=== PATIENT | male | born 1950 | race Caucasian/White ===

== ENCOUNTER 2016-07-02 16:41 | Inpatient (IN) | payer OTHER ==
[2016-07-02] MEDS ORDERED: Aspirin Low Dose CHEW TAB* 81 MG PO ONE (17:10)
[2016-07-02] MEDS ORDERED: NS 0.9% 1000 ML* 1,000 ML IV ONE (17:10)
--- NOTE | 2016-07-02 17:33 | RAD ---
INDICATION: Post intubation COMPARISON: Chest x-ray June 24, 2016 TECHNIQUE: An AP portable view obtained at 1710 hours is submitted. FINDINGS: Bones/Soft Tissues: There are no acute bony findings. There is an endotracheal tube approximately 2 cm above the chung. There is an external pacer projecting over the right hemithorax. Cardiomediastinal: The cardiomediastinal silhouette is normal. Lungs: There is mild airspace disease in right chest consistent infiltrate or atelectasis. The left lung is grossly clear. Pleura: Left costal phrenic angles not included in the [id number]. Other: None IMPRESSION: ENDOTRACHEAL TUBE POSITION DESCRIBED. MILD HYPOVENTILATION RIGHT CHEST. SUGGEST FOLLOW-UP INDICATED.
[2016-07-02] MEDS ORDERED: Norepinephrine 16MCG/ML IVPRE* 4,000 MCG/250 ML BAG IV ONE (17:41)
[2016-07-02 17:45] LABS: Hematocrit 40 % (42-52); Hemoglobin 12.8 g/dl (14.0-18.0); Mean Corpuscular HGB Conc 32 g/dl (31-36); Mean Corpuscular Hemoglobin 29 pg (27-31); Mean Corpuscular Volume 92 fL (80-94); Mean Platelet Volume 9 um3 (7.4-10.4); Red Blood Count 4.37 10^6/ul (4.0-5.4); Red Cell Distribution Width 14 % (10.5-15)
[2016-07-02 17:58] LABS: Albumin 2.9 g/dL (3.2-5.2); BUN/Creatinine Ratio 12.4 (8-20); Calcium 8.2 mg/dL (8.6-10.3); EGFR African American 59.2 (>60); EGFR Non-African American 46.1 (>60); Globulin 2.9 g/dL (2-4); Potassium 4.9 mmol/L (3.5-5.0); Total Bilirubin 0.3 mg/dL (0.2-1.0); Total Protein 5.8 g/dL (6.4-8.9)
[2016-07-02 18:04] LABS: Troponin I 0.04 ng/mL (<0.04)
[2016-07-02] MEDS ORDERED: DOBUTamine 2000 MCG/ML IVPREMX 500 MG/250 ML BAG IV ONE (18:33)
[2016-07-02] MEDS ORDERED: DOBUTamine 2000 MCG/ML IVPREMX 500 MG/250 ML BAG IV SCH (19:00)
--- NOTE | 2016-07-02 19:09 | ED ---
Cardiac Resuscitation - HPI Summary HPI Summary: Patient presents for evaluation after ROSC and unwitnessed cardiac arrest. Patient had unwitnessed downtime, but found by . EMS called and begun resuscitation. Failed intubation x 2 and Combitube placed with success. POCT glucose was 204. Narcotic bottle found nearby, so EMS gave 2 mg of IV narcan without relief. Asystole by ALS and had 3 epinephrine with compressions and ROSC. No RSI given due to unresponsiveness. History limited by patient condition. - History of Current Complaint Chief Complaint: EDCardiacArrest Stated Complaint: ABC Time Seen by Provider: 07/02/16 16:45 Hx Obtained From: EMS Hx From Patient Unobtainable Due To: Extremis Onset/Duration: Unknown Arrest Witnessed: No Down-time Before Basic Life Support Initiated: Unknown Down-time Before Advanced Life Support Initiated: Unknown Was Defibrillating Shock Administered: No Did Patient Have Return of Spontaneous Circulation (ROSC): Yes - Prehospital Findings Airway: Gag Reflex Absent Breathing: Apnea Circulation/Rhythm: Asystole Disability/Neurologic: Unresponsive - Prehospital Intervention Breathing: Oral Endotracheal Circulation/Rhythm: Chest Compressions, Epinephrine:, IV Catheter Placed - Prehospital Response Airway: Gag Reflex Absent Circulation/Rhythm: Asystole - Allergies/Home Medications Allergies/Adverse Reactions: Allergies Allergy/AdvReac Type Severity Reaction Status Date / Time Morphine Allergy Intermediate Hives Verified 06/13/14 08:51 - Past Medical History Past Medical History: Unobtainable Due to Extremis - Family History Family History: Unobtainable Due to Extremis - Social History Social History: Unobtainable Due to Extremis, Lives with Family - Review of Systems Review of Systems: Unobtainable Due to Extremis Physical Examination - Physical Examination Completion Of Physical Exam Limited Due To: Extremis Resuscitation: Successful - ED Findings Airway: Gag Reflex Absent Breathing: Apnea, Lungs: Crackles, Breath Sounds Equal, Bilateral Circulation/Rhythm: Sinus Tachycardia Disability/Neurological: Unresponsive, Does NOT Respond to Pain, Reflexes Not Intact, Pupils Fixed, Pupils Dilated - ED Intervention Breathing: By ED Physician, ETT Cuffed, Oral Endotracheal Circulation/Rhythm: IV Catheter Placed - ED Response Airway: Gag Reflex Absent Breathing: ETT in Airway: - 8.0, Placement Confirmed by Auscultation, Placement Confirmed by Capnometer Circulation/Rhythm: Sinus Tachycardia - Glascow Coma Score Eye Openin - None Motor: 1 - None Verbal: 1 - Intubated - Skin without lesions. Normocephalic and atraumatic head. Supple neck. Soft benign abdomen. No rigidity or clonus. Pulses equal in carotids and femorals. Coma Scale Total: 3 T Procedures - Central Line Central Line Lumen: triple Central Line Procedure: sterile drapes applied, sterile dressing applied Central Line Position: subclavian (L) Complications: none Central Line Post Position: sutured, good blood return, position confirmed w/ CXR - Intubation Intubation Method: orotracheal Tube Size (cm): 8.0 Breath Sounds after Intubation: equal Intubation Complications: no complications, apparent aspiration Post Intubation Xray: Yes Progress/Xray Impression: Good ET Tube placement. No pneumothorax. Diagnostics - Laboratory Lab Results: Lab Results 07/02/16 07/02/16 07/02/16 Range/Units 16:48 16:48 16:48 WBC 19.0 H (3.5-10.8) 10^3/ul RBC 4.37 (4.0-5.4) 10^6/ul Hgb 12.8 L (14.0-18.0) g/dl Hct 40 L (42-52) % MCV 92 (80-94) fL MCH 29 (27-31) pg MCHC 32 (31-36) g/dl RDW 14 (10.5-15) % Plt Count 281 (150-450) 10^3/ul MPV 9 (7.4-10.4) um3 Neut % (Auto) 72.1 (38-83) % Lymph % (Auto) 19.8 L (25-47) % [place] % (Auto) 6.0 (1-9) % Eos % (Auto) 1.8 (0-6) % Baso % (Auto) 0.3 (0-2) % Absolute Neuts (auto) 13.7 H (1.5-7.7) 10^3/ul Absolute Lymphs (auto) 3.8 (1.0-4.8) 10^3/ul Absolute Monos (auto) 1.1 H (0-0.8) 10^3/ul Absolute Eos (auto) 0.3 (0-0.6) 10^3/ul Absolute Basos (auto) 0.1 (0-0.2) 10^3/ul Absolute Nucleated RBC 0.01 10^3/ul Nucleated RBC % 0 INR (Anticoag Therapy) 0.94 (0.89-1.11) APTT 37.8 H (26.0-36.3) seconds Sodium 135 (133-145) mmol/L Potassium 4.9 (3.5-5.0) mmol/L Chloride 103 (101-111) mmol/L Carbon Dioxide 21 L (22-32) mmol/L Anion Gap 11 (2-11) mmol/L BUN 19 (6-24) mg/dL Creatinine 1.53 H (0.67-1.17) mg/dL Est GFR ( Amer) 59.2 (>60) Est GFR (Non-Af Amer) 46.1 (>60) BUN/Creatinine Ratio 12.4 (8-20) Glucose 298 H (70-100) mg/dL Lactic Acid (0.5-2.0) mmol/L Calcium 8.2 L (8.6-10.3) mg/dL Total Bilirubin 0.30 (0.2-1.0) mg/dL AST 169 H (13-39) U/L ALT 176 H (7-52) U/L Alkaline Phosphatase 150 H (34-104) U/L Total Creatine Kinase 328 H (10-223) U/L CK-MB (CK-2) 4.9 (0.6-6.3) ng/mL Myoglobin 479.0 H (17.4-105.7) ng/mL Troponin I 0.04 H* (<0.04) ng/mL B-Natriuretic Peptide ( - 100) pg/mL Total Protein 5.8 L (6.4-8.9) g/dL Albumin 2.9 L (3.2-5.2) g/dL Globulin 2.9 (2-4) g/dL Albumin/Globulin Ratio 1.0 (1-3) 07/02/16 07/02/16 Range/Units 16:48 16:48 WBC (3.5-10.8) 10^3/ul RBC (4.0-5.4) 10^6/ul Hgb (14.0-18.0) g/dl Hct (42-52) % MCV (80-94) fL MCH (27-31) pg MCHC (31-36) g/dl RDW (10.5-15) % Plt Count (150-450) 10^3/ul MPV (7.4-10.4) um3 Neut % (Auto) (38-83) % Lymph % (Auto) (25-47) % [place] % (Auto) (1-9) % Eos % (Auto) (0-6) % Baso % (Auto) (0-2) % Absolute Neuts (auto) (1.5-7.7) 10^3/ul Absolute Lymphs (auto) (1.0-4.8) 10^3/ul Absolute Monos (auto) (0-0.8) 10^3/ul Absolute Eos (auto) (0-0.6) 10^3/ul Absolute Basos (auto) (0-0.2) 10^3/ul Absolute Nucleated RBC 10^3/ul Nucleated RBC % INR (Anticoag Therapy) (0.89-1.11) APTT (26.0-36.3) seconds Sodium (133-145) mmol/L Potassium (3.5-5.0) mmol/L Chloride (101-111) mmol/L Carbon Dioxide (22-32) mmol/L Anion Gap (2-11) mmol/L BUN (6-24) mg/dL Creatinine (0.67-1.17) mg/dL Est GFR ( Amer) (>60) Est GFR (Non-Af Amer) (>60) BUN/Creatinine Ratio (8-20) Glucose (70-100) mg/dL Lactic Acid 7.2 H* (0.5-2.0) mmol/L Calcium (8.6-10.3) mg/dL Total Bilirubin (0.2-1.0) mg/dL AST (13-39) U/L ALT (7-52) U/L Alkaline Phosphatase (34-104) U/L Total Creatine Kinase (10-223) U/L CK-MB (CK-2) (0.6-6.3) ng/mL Myoglobin (17.4-105.7) ng/mL Troponin I (<0.04) ng/mL B-Natriuretic Peptide 20 ( - 100) pg/mL Total Protein (6.4-8.9) g/dL Albumin (3.2-5.2) g/dL Globulin (2-4) g/dL Albumin/Globulin Ratio (1-3) Result Diagrams: 07/02/16 16:48 07/02/16 16:48 Lab Statement: Any lab studies that have been ordered have been reviewed, and results considered in the medical decision making process. - EKG No standard instances Cardiac Rate: Tachycardia EKG Rhythm: Sinus Tachycardia Ectopy: None Cardiac Resus. Course/Dx - Cardiac Resuscitation Differential Dx/HPI/PQRI: Acute Myocardial Infarct, Drug Overdose, Respiratory Failure - Diagnoses Provider Diagnoses: Cardiopulmonary arrest with successful resuscitation, Aspiration pneumonia, Hypoxic encephalopathy - Provider Notifications Discussed Care Of Patient With: Case discussed with Video Tape Duplicator who will take up to the ICU and determine CT needs as well as antibiotics. - Critical Care Time Critical Care Time: 30-74 min - Limited Transthoracic Echocardiography: No pericardial effusion. Concentric motion without regional wall motion abnormality. IVC is greater than 2 cm with <50% respirophasic variation. Jimmy Feldman MD, RDMS RDCS Transthoracic Ultrasound: No pneumothorax or significant pleural effusion. Jimmy Feldman MD, RDMS RDCS Discharge - Discharge Plan Condition: Critical Disposition: ADMITTED TO [facility]
--- NOTE | 2016-07-02 22:05 | HP ---
ADMISSION HISTORY AND PHYSICAL: DATE OF ADMISSION: 07/02/16 REASON FOR ADMISSION: Cardiac arrest. HISTORY OF PRESENT ILLNESS: This patient is a 65-year-old white male with a history of depression who suffered a cardiac arrest while at home earlier today without any prodromal symptoms. EMS arrived at the scene approximately 10 minutes after the arrest and the initial rhythm was asystole. CPR in the field continued for approximately 2 hours (with end-tidal PCO2s ranging from 10 to 30 mm Hg) with eventual ROSC, but patient remained comatose and was admitted to the ICU for targeted temperature management. There is no prior history of cardiovascular disease, and the patient did not complain of chest pain, headache , nausea, or vomiting prior to the event. On arrival to the ICU, blood pressure was 100/70 (mean BP = 75) and arterial O2 sat was 85% on an FIO2 of 100% (and mechanical ventilation). Over the course of the first 2 hours in the intensive care unit, the blood pressure steadily decreased, requiring levophed for BP support. Arterial O2 sat also progressively declined to 70% despite and FIO2 of 100%. Chest x-ray showed patchy infiltrates in the right lung. OUTPATIENT MEDICATIONS: 1. Roxicodone. 2. Lyrica. 3. Omeprazole. 4. Nortriptyline. 5. Cymbalta. 6. Lipitor. ALLERGIES: MORPHINE, which produces urticaria. SOCIAL HISTORY: The patient is and lives with his . 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 There is no history of drug or alcohol abuse. PHYSICAL EXAMINATION GENERAL: The patient is unresponsive to verbal commands and deep pain. VITAL SIGNS: As mentioned. HEENT: Pupils dilated and fixed. Corneals absent. NECK: Without masses or jugular venous distention. LUNGS: Scattered rhonchi. No crackles. CARDIAC: S1 and S2 faint. No murmurs, rubs, or gallops appreciated. ABDOMEN: Not distended. EXTREMITIES: Cool, but not cyanotic or mottled. There is no edema. ADMISSION LABORATORY DATA: White count 19, hemoglobin 12.8, platelets 281. Serum bicarb was 21 with an anion gap of 11 and a lactic acid of 7.2. Creatinine was 1.53. Glucose of 298, myoglobin 479, troponin 0.04. CPK was 328 , alk phos 150, ALT 176, AST 169. Albumin 2.9. BNP 20. Chest x-ray as described and 12-lead EKG pending. IMPRESSION: Cardiac arrest with prolonged resuscitation effort and failure to awaken post-arrest. The prognosis seems very poor considering the loss of pupillary reflexes and the steady decline in blood pressure and arterial O2 saturation. . MANAGEMENT PLAN: General supportive care, including vasopressors and mechanical ventilation. Patient's was present at the bedside, and is aware of the poor prognosis. She has requested a DNR order for the patient, which was enacted. CRITICAL CARE TIME: 60 minutes. [id number]/[facility] #: [id number] VELIA
[2016-07-03 02:27] LABS: FIO2 100; Resp Rate 16; Ventilator Volume 500
[2016-07-03 02:28] LABS: PCO2 Arterial 65 mmHg (35-45)
[2016-07-03 03:22] LABS: Urine Bacteria Absent (Absent); Urine Bilirubin Negative (Negative); Urine Glucose 1+(50 mg/dL) (Negative); Urine Nitrite Negative (Negative); Urine Sperm Present (Absent)
[2016-07-03 03:30] LABS: Add Diff/Slide Review? Slide Review Added; Comments Flag Yes; Hematocrit 47 % (42-52); Hemoglobin 15.1 g/dl (14.0-18.0); Mean Corpuscular HGB Conc 32 g/dl (31-36); Mean Corpuscular Hemoglobin 29 pg (27-31); Mean Corpuscular Volume 89 fL (80-94); Mean Platelet Volume 9 um3 (7.4-10.4); Red Blood Count 5.27 10^6/ul (4.0-5.4); Red Cell Distribution Width 14 % (10.5-15); White Blood Count 19.1 10^3/ul (3.5-10.8)
[2016-07-03 03:36] LABS: Albumin 3.2 g/dL (3.2-5.2); BUN/Creatinine Ratio 13.6 (8-20); Calcium 7.9 mg/dL (8.6-10.3); Direct Bilirubin 0.1 mg/dL (0.03-0.18); EGFR African American 40.2 (>60); EGFR Non-African American 31.3 (>60); Globulin 3.3 g/dL (2-4); Indirect Bilirubin 0.2 mg/dL (0.3-1.0); Total Bilirubin 0.3 mg/dL (0.2-1.0); Total Protein 6.5 g/dL (6.4-8.9)
[2016-07-03 03:42] LABS: Potassium 6.3 mmol/L (3.5-5.0); Troponin I 7.84 ng/mL (<0.04)
[2016-07-03 03:51] LABS: Immature Granulocytes 20 % (0-9); Neutrophil % 66 % (38-83); RBC Morphology Normal (Normal); Reactive Lymph % 5 % (0-6)
[2016-07-03 06:46] LABS: Comments Flag Yes; Hematocrit 44 % (42-52); Hemoglobin 14.7 g/dl (14.0-18.0); Mean Corpuscular HGB Conc 33 g/dl (31-36); Mean Corpuscular Hemoglobin 29 pg (27-31); Mean Corpuscular Volume 89 fL (80-94); Mean Platelet Volume 8 um3 (7.4-10.4); Red Blood Count 5.01 10^6/ul (4.0-5.4); Red Cell Distribution Width 14 % (10.5-15); White Blood Count 17.6 10^3/ul (3.5-10.8)
[2016-07-03 07:07] LABS: BUN/Creatinine Ratio 14.7 (8-20); Calcium 7.9 mg/dL (8.6-10.3); EGFR African American 40.9 (>60); EGFR Non-African American 31.8 (>60); Globulin 3.2 g/dL (2-4); Potassium 5.8 mmol/L (3.5-5.0); Total Bilirubin 0.3 mg/dL (0.2-1.0); Total Protein 6.2 g/dL (6.4-8.9)
--- NOTE | 2016-07-03 08:08 | RAD ---
INDICATION: Cardiac arrest COMPARISON: None. TECHNIQUE: Single AP portable view of the chest was obtained. FINDINGS: Image quality is compromised due to the relative inferiority of a portable chest x-ray. Lines and tubes including the endotracheal tube and a left subclavian vein central line are in appropriate position and unchanged from the previous chest x-ray. There is increasing opacification overlying the right lung. There is density at the left lung base and blunting of the left costophrenic angle. IMPRESSION: Worsening aeration of the left lung could be due to layering pleural effusion or worsening pulmonary edema in the setting of cardiac arrest.
[2016-07-03 08:38] LABS: Troponin I 10.61 ng/mL (<0.04)
[2016-07-03] MEDS ORDERED: Norepinephrine 16MCG/ML IVPRE* 0 MCG/0 ML BAG IV ONE (13:09)
--- NOTE | 2016-07-03 17:49 | PN ---
Critical Care Services: Clinical consition has stabilized, but patient still has not awakened. TTM to 36 degrees continues. Vital Signs: Temp Pulse Resp BP SpO2 FiO2 96.3 F 56 21 122/54 93 90 NOTE: No spontaneous ventilatory efforts. Physical Exam: Gen:Unresponsive HEENT:Pupils midposition and unresponsive. Corneal reflexes absent. Lungs:Scattered rhonchi Extremities:Warm. No cyanosis or edema. Fluid Balance (Past 24 Hours): 07/03/16 06:59 Intake Total 2089 Output Total 550 Balance +1539 Weight 267 lb Intake: IV Fluids 1806 LR 1806 Medicated IV 283 CC - Norepinephrine/ 283 Levophed Output: Colvin 550 Labs: 07/03/16 07/03/16 06:30 06:30 WBC 17.6 H RBC 5.01 Hgb 14.7 Hct 44 Plt Count 267 Sodium 138 Potassium 5.8 Chloride 105 Carbon Dioxide 29 Anion Gap 4 BUN 31 H Creatinine 2.11 Est GFR ( Amer) 40.9 Est GFR (Non-Af Amer) 31.8 BUN/Creatinine Ratio 14.7 Glucose 144 Lactic Acid 1.7 Calcium 7.9 L Total Bilirubin 0.30 Indirect Bilirubin AST 201 ALT 185 Alkaline Phosphatase 158 Total Creatine Kinase CK-MB (CK-2) Troponin I 10.61 Total Protein 6.2 L Albumin 3.0 Globulin 3.2 Studies: CXR: Progressive infiltrate right lung Nutrition: None Impression: Patient currently has no evidence of brainstem activity. However, I cannot do a brain evaluation while the patient is being cooled. The absence of pupillary reflexes is a poor prognostic sign for awakening. Plan: Brain evaluation in AM tomorrow (after the period of induced cooling has terminated). Patient's was at the bedside today, and is aware of the current situation and the poor prognosis.
[2016-07-03] MEDS ORDERED: Piperac/Tazob 3.375 gm in NS* 3.375 GM/100 ML BAG IVPB ONE (19:30)
[2016-07-03] MEDS: Norepinephrine 16MCG/ML IVPRE* 4,000 MCG/250 ML BAG IV SCH (21:38)
[2016-07-03] MEDS: Heparin VIAL(*) 5000 UNITS/ML VIAL (FIVE THOUSAND) SUBCUT SCH (21:38)
[2016-07-03 21:49] LABS: Benzodiazepine Urine Screen None Detected (None Detect)
[2016-07-03] MEDS: Piperac/Tazob 3.375 gm in NS* 3.375 GM/100 ML BAG IVPB SCH (23:50)
[2016-07-04 03:32] LABS: FIO2 100; Resp Rate 20; Ventilator Volume 500
[2016-07-04 03:59] LABS: FIO2 100; Resp Rate 20; Ventilator Volume 500
[2016-07-04 04:00] LABS: Patient Temp ABG 98.6
[2016-07-04 04:09] LABS: PCO2 Arterial 125 mmHg (35-45)
--- NOTE | 2016-07-04 04:31 | PN ---
Progress Note - Progress Note Note: Patient severely acidotic. Appears to mixed picture but more respiratory acidosis. Would not ordinarily give bicarb but we have exhausted our possibilities with vent management and only hope to improve acidodis is with bicarb. Will start bicarb drip and recheck ABGs. To be clear, the chances of this helping are remote,
[2016-07-04] MEDS: Sodium Bicarbonate 8.4% IV* 50 MEQ in D5W 1000 ML BAG* 1,000 ML IVPB SCH ×2 (04:53→10:18)
[2016-07-04] MEDS ORDERED: Sodium Bicarbonate 8.4% IV* 50 MEQ in D5W 1000 ML BAG* 1,000 ML IVPB SCH (05:00)
[2016-07-04 05:34] LABS: Hematocrit 42 % (42-52); Hemoglobin 13.7 g/dl (14.0-18.0); Mean Corpuscular HGB Conc 32 g/dl (31-36); Mean Corpuscular Hemoglobin 29 pg (27-31); Mean Corpuscular Volume 91 fL (80-94); Mean Platelet Volume 9 um3 (7.4-10.4); Red Blood Count 4.68 10^6/ul (4.0-5.4); Red Cell Distribution Width 14 % (10.5-15); White Blood Count 15.3 10^3/ul (3.5-10.8)
[2016-07-04 05:37] LABS: Comments Flag Yes
[2016-07-04 05:46] LABS: Albumin 2.9 g/dL (3.2-5.2); BUN/Creatinine Ratio 16.3 (8-20); Calcium 7.7 mg/dL (8.6-10.3); EGFR African American 29.1 (>60); EGFR Non-African American 22.6 (>60); Globulin 3.1 g/dL (2-4); Total Bilirubin 0.3 mg/dL (0.2-1.0)
[2016-07-04 05:57] LABS: Potassium 6.4 mmol/L (3.5-5.0); Troponin I 6.98 ng/mL (<0.04)
[2016-07-04] MEDS: Heparin VIAL(*) 5000 UNITS/ML VIAL (FIVE THOUSAND) SUBCUT SCH (06:00)
[2016-07-04 06:19] LABS: FIO2 100; Resp Rate 20; Ventilator Volume 500
[2016-07-04 06:28] LABS: PCO2 Arterial 95 mmHg (35-45)
[2016-07-04] MEDS: Piperac/Tazob 3.375 gm in NS* 3.375 GM/100 ML BAG IVPB SCH (07:08)
[2016-07-04] MEDS: Norepinephrine 16MCG/ML IVPRE* 4,000 MCG/250 ML BAG IV SCH (07:30)
[2016-07-04] MEDS ORDERED: Lidocain 1% EPI 1:100,000 * 30 ML MDV ONE (08:13)
--- NOTE | 2016-07-04 08:15 | RAD ---
HISTORY: Pneumonia COMPARISONS: July 03, 2016 at 6:20 AM VIEWS:1: Single frontal portable view of the chest at 6:40 AM FINDINGS: LINES AND TUBES: An endotracheal tube is noted with the tip overlying the trachea between the clavicles and the chung. A gastric tube is noted with the tip below the [id number] the current examination, but below the diaphragm. A left-sided PICC line is noted with tip overlying the confluence of the brachiocephalic vein on the left in the superior vena cava. CARDIOMEDIASTINAL SILHOUETTE: The cardiomediastinal silhouette is normal for portable technique. PLEURA: There has been interval development of a large right-sided pneumothorax LUNG PARENCHYMA: There is complete atelectasis of the right lung ABDOMEN: The upper abdomen is clear. There is no subphrenic gas. BONES AND SOFT TISSUES: No bone or soft tissue abnormalities are noted. IMPRESSION: 1. THERE HAS BEEN INTERVAL DEVELOPMENT OF A LARGE RIGHT PNEUMOTHORAX WITH COMPLETE ATELECTASIS OF THE RIGHT LUNG. THE ICU TEAM CARING FOR THE PATIENT WAS AWARE OF THIS FINDING AT THE TIME OF DICTATION. 2. LINES AND TUBES ABOVE
[2016-07-04] MEDS ORDERED: Famotidine IV * 20 MG in NS 0.9% 100 ML* 100 ML IVPB SCH (09:00)
--- NOTE | 2016-07-04 09:28 | RAD ---
HISTORY: Chest tube placement COMPARISONS: July 04, 2016 at 6:33 AM VIEWS:1: Single frontal portable view of the chest at 8:44 AM FINDINGS: LINES AND TUBES: An endotracheal tube is noted with the tip overlying the trachea between the clavicles and the chung. A gastric tube is noted with the tip in the left upper quadrant in a prepyloric position. A left-sided central venous catheter is noted with the tip overlying the confluence of the left brachiocephalic vein and the superior vena cava. There has been interval placement of a right-sided chest tube. CARDIOMEDIASTINAL SILHOUETTE: The cardiomediastinal silhouette is stable. PLEURA: There is been interval resolution of the right-sided pneumothorax, without appreciable residual. There is blunting of left costophrenic angle LUNG PARENCHYMA: There is confluent alveolar opacification of the right lower lung and to lesser extent of the left lung base ABDOMEN: The upper abdomen is clear. There is no subphrenic gas. BONES AND SOFT TISSUES: No bone or soft tissue abnormalities are noted. IMPRESSION: 1. LINES AND TUBES ABOVE. 2. INTERVAL RESOLUTION OF THE RIGHT-SIDED PNEUMOTHORAX. 3. PATCHY BIBASILAR ATELECTASIS VERSUS CONSOLIDATION, GREATER ON THE LEFT. 4. SMALL LEFT PLEURAL EFFUSION
--- NOTE | 2016-07-04 09:52 | PN ---
Progress Note - Progress Note Note: During the evening, patient developed respiratory acidosis and a progressive increase in vasopressor requirements (to levophed at 20 mcg/min) - chest x-ray at 6 AM showed a right-sided tension pneumothorax - a chest tube was placed in the right anterior 5th ICS emergently (by Dr. Su), with re-expansion of the lung on post-insertion chest film. Levophed requirement dropped from 20 to 5 mcg/min after re-expansion of the lung. Repeats ABGs pending.
[2016-07-04] MEDS ORDERED: Famotidine IV* 10 MG/ML 2 ML (20 mg) ONE (10:18)
[2016-07-04 10:35] LABS: FIO2 100; Resp Rate 14; Ventilator Volume 350
[2016-07-04 10:40] LABS: FIO2 15
[2016-07-04 10:56] LABS: PCO2 Arterial > 124 mmHg (35-45)
[2016-07-04 10:57] LABS: PCO2 Arterial 125 mmHg (35-45)
--- NOTE | 2016-07-04 13:00 | PN ---
Progress Note - Progress Note Note: BRAIN DETERMINATION An evaluation for brain was performed in the AM of 07/04/2016, while the patient was normothermic, and the results were as follows: 1. Patient was comatose, and unresponsive to noxious stimuli 2. Corneal, gag and cough reflexes were absent. 3. Pupillary light reflex was absent. 4. Oculovestibular and oculocephalic responses were absent. 5. Patient removed from ventilator for 5 minutes (with high-flow O2 insufflation ) and showed no evidence of breathing efforts. PaCO2 increased from 125 to 134 mm Hg during the apnea test. These observations satisfy the criteria for the diagnosis of brain , which was made on 10:28 AM. Patient's was notified of the brain diagnosis.
[2016-07-04 13:11] VITALS: BP 166/83
--- NOTE | 2016-07-04 23:29 | OP ---
CC: [facility]; Dr. Sara Leal. OPERATIVE REPORT: DATE OF OPERATION: 07/04/16 DATE OF : 52 SURGEON: Celio Su MD ANESTHESIA: Existing intravenous sedation as well as 1% lidocaine with epinephrine. PRE-OP DIAGNOSIS: Large right pneumothorax. POST-OP DIAGNOSIS: Large right pneumothorax. OPERATIVE PROCEDURE: Insertion of #32-Khmer right thoracostomy tube under sterile conditions. ESTIMATED BLOOD LOSS: Minimal. WOUND CLASSIFICATION: I. COMPLICATIONS: None. DRAINS: #32-Khmer chest tube into the right pleural space. BRIEF HISTORY: Mr. Navi Aguiar is a 65-year-old gentleman who unfortunately presented to the emergency room in sudden cardiac arrest requiring aggressive cardiac resuscitation, intubation, and admission to the intensive care unit. He has been on the ventilator and sedated and on this morning, chest x-ray noted to have almost a complete collapse of the right lung. In addition, he had apparently had some relative hypotension and hypoxemia over the last several hours. I was called emergently by Dr. Sunil Lea for insertion of a right-sided chest tube for decompression of the right pleural space. Due to the emergent nature of the clinical scenario, Dr. Lea had talked with the patient's and obtained informed phone consent. I did not talk with the patient's , as we felt that it was after Dr. Lea had conversed with her the procedure needed to be done emergently. DESCRIPTION OF PROCEDURE: Informed consent had been obtained. The patient was in the supine position in the intensive care unit in his bed on the ventilator and sedated and the right anterolateral chest was prepped and draped in the usual sterile fashion. The right side was marked with indelible ink. The chest x-ray was reviewed once again to assure ourselves the correct side. Time-out verification was completed. Lidocaine 1% with epinephrine was infiltrated in the anterolateral chest just below the pectoralis muscle and the nipple and an oblique incision was made over what was felt to be the 5th to 6th intercostal space. Using sharp and blunt dissection, carried down to the anterior rib surface and using a blunt Sabina, the pleura was entered over the superior surface of the rib. There was a small juárez of air and some serous fluid, which drained. A #32-Khmer chest tube was placed about 16 cm without difficulty. The catheter was secured to the skin with several 2-0 Prolene sutures. Vaseline gauze and 4x4 gauze were then placed for an occlusive dressing. The catheter was secured to the Pleur-evac and placed on suction. Postprocedural chest x-ray showed the catheter to be in good position with expansion of the lung. [id number]/[facility] #: [id number] MTDD
--- NOTE | 2016-07-05 01:50 | DS ---
SUMMARY: DATE OF ADMISSION: 07/02/16 DATE : 07/04/16 HISTORY OF PRESENT ILLNESS: This patient is a 65-year-old white male who suffered a cardiac arrest at home on 07/02/16 and after 2 hours of resuscitation in the field was brought to the emergency dep artment with return of spontaneous circulation. The patient was admitted to the intensive care unit and targeted temperature management was started with a target temperature of 36 degrees centigrade. The cooling was maintained for 24 hours and the patient remained comatose during that time. Becau se of continuing coma and a suspicion of brain , a brain evaluation was performed in the a.m. of 07/04/16. At that time, the patient was normotensive and had no evidence of brain stem acti vity and a positive apnea test. These observations fulfil the criteria for brain and the paige ent was pronounced at 10:28 a.m. The patient's was present at the bedside. The organ donor service evaluated the patient and felt that because of the extended resuscitation time that t he patient was not a candidate for organ donation. Just prior to the brain determination, the patient was noted to have a pneumothorax and a ches t tube was placed with re-expansion of the lung. FINAL DIAGNOSES: 1. Cardiac arrest with anoxic encephalopathy and brain . 2. Pulmonary barotrauma secondary to mechanical ventilation. [id number]/[facility] #: [id number]
== END 2016-07-04 10:28 | disposition expired | DRG 296 ==
LOC: ED 16:41 → ICU 16:58
PROVIDERS: ADMIT Internal Medicine Critical Care Medicine; ATTEND Internal Medicine Critical Care Medicine
PROC: 0BH17EZ Insertion of Endotracheal Airway into Trachea, Via Natural or Artificial Opening (ICD-10-PCS; principal; 2016-07-02)
PROC: 5A1945Z Respiratory Ventilation, 24-96 Consecutive Hours (ICD-10-PCS; 2016-07-02)
PROC: 0W9930Z Drainage of Right Pleural Cavity with Drainage Device, Percutaneous Approach (ICD-10-PCS; 2016-07-04)
DX: I46.9 Cardiac arrest, cause unspecified (principal); G93.1 Anoxic brain damage, not elsewhere classified; E87.2 Acidosis; T70.29XA Other effects of high altitude, initial encounter; X58.XXXA Exposure to other specified factors, initial encounter; F32.9 Major depressive disorder, single episode, unspecified; R40.2432 Glasgow coma scale score 3-8, at arrival to emergency department; Z66 Do not resuscitate; Z88.6 Allergy status to analgesic agent; Z79.899 Other long term (current) drug therapy
CPT/HCPCS: 36415; 36600; 71010; 80053; 80307; 81003; 81015; 82247; 82248; 82550; 82553; 82803; 83605; 83874; 83880; 84484; 85025; 85027; 85610; 85730; 86850; 86900; 86901; 87040; 87070; 87077; 87186; 87205; 92950; 93005; 94002; 94003; 94760; 99406; J1250; J1644; J2543; J7060